=== PATIENT | male | born 1975 | race Caucasian/White ===

== ENCOUNTER 2020-04-28 11:40 | Outpatient (REF) | payer OTHER, SELFPAY ==
[2020-04-28 13:58] LABS: MANUAL DIFF FLAG NO
[2020-04-28 14:09] LABS: Basophils Percent Auto 0.6 % (0-2); Eosinophils Absolute Auto 0.2 X10*3/uL (0.0-0.4); Eosinophils Percent Auto 3.7 % (0-4); Hematocrit 45.6 % (42-52); Hemoglobin 15.4 g/dl (14.0-18.0); Imm Gran Abs Auto 0.01 X10*3/uL (0.00-0.03); Imm Gran Pct Auto 0.2 % (0.0-0.4); Lymphocytes Absolute Auto 1.3 X10*3/uL (1.2-4.9); Lymphocytes Percent Auto 25.8 % (20-40); Mean Corpuscular HGB Conc 33.8 g/dl (31.0-36.0); Mean Corpuscular Volume 100.7 fL (80-98); Mean Platelet Volume 10.6 fL (9.4-12.4); Monocytes Absolute Auto 0.7 X10*3/uL (0.1-1.2); Monocytes Percent Auto 14.1 % (2-11); Neutrophils Absolute Auto 2.7 X10*3/uL (2.0-8.3); Neutrophils Percent Auto 55.6 % (45-73); Platelet Count 203 X10*3/uL (160-400); Red Blood Count 4.53 X10*6/uL (4.60-5.80); Red Cell Distribution Width 11.9 % (11.0-16.0); White Blood Count 4.9 X10*3/uL (4.8-10.8)
[2020-04-28 14:32] LABS: Alanine Aminotransferase 37 U/L (0-40); Albumin Level 4.5 g/dL (3.5-5.0); Alkaline Phosphatase 93 U/L (39-117); Anion Gap 16 (12-20); Aspartate Amino Transferase 44 U/L (5-37); Bilirubin Total 0.9 mg/dL (0.0-1.0); Blood Urea Nitrogen 6 mg/dL (9-16); Calcium 9.2 mg/dL (8.4-10.2); Carbon Dioxide 27 mmol/L (22-29); Chloride 102 mmol/L (96-108); Cholesterol 176 mg/dL; Estimated Glomerular Filt Rate > 60; Glucose Fasting 103 mg/dL (60-99); HDL Cholesterol 86 mg/dL; LDL Cholesterol Calculated 72 mg/dl; Potassium 3.9 mmol/l (3.3-5.1); Sodium 141 mmol/L (135-145); Total Protein 7.7 g/dL (6.5-8.0); Triglycerides 94 mg/dL
[2020-04-28 14:51] LABS: Thyroid Stimulating Hormone 2.76 uIU/mL (0.32-4.0)
== END 2020-04-28 11:41 | disposition home or self-care (01) ==
LOC: HO.HMGCLDS 11:40
PROVIDERS: PCP Internal Medicine; Visit Provider Internal Medicine
DX: Z00.01 Encounter for general adult medical examination with abnormal findings (principal); F10.24 Alcohol dependence with alcohol-induced mood disorder; F12.288 Cannabis dependence with other cannabis-induced disorder; F32.9 Major depressive disorder, single episode, unspecified; F41.0 Panic disorder [episodic paroxysmal anxiety]
CPT/HCPCS: 36415; 80053; 80061; 84443; 85025

== ENCOUNTER 2021-01-01 18:36 | Emergency (ER) | payer OTHER, SELFPAY ==
[2021-01-01 20:04] VITALS: BP 167/88; PULSE 66; RESP 16; TEMP 36.1; O2SAT 98; BMI 20.9
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
[2021-01-01] MEDS: Ibuprofen 600 MG TABLET PO (22:11)
[2021-01-01] MEDS: Acetaminophen 325 MG TABLET 975 MG PO (22:12)
== END 2021-01-01 22:17 | disposition home or self-care (01) ==
PROVIDERS: Emergency Provider Emergency Medicine Emergency Medical Services
DX: S43.401A Unspecified sprain of right shoulder joint, initial encounter (principal); S13.9XXA Sprain of joints and ligaments of unspecified parts of neck, initial encounter; S23.9XXA Sprain of unspecified parts of thorax, initial encounter; M25.511 Pain in right shoulder; M54.2 Cervicalgia; M54.5 Low back pain; V43.52XA Car driver injured in collision with other type car in traffic accident, initial encounter; Y93.9 Activity, unspecified; Y92.410 Unspecified street and highway as the place of occurrence of the external cause; Y99.9 Unspecified external cause status; Z79.899 Other long term (current) drug therapy
CPT/HCPCS: 99283

== ENCOUNTER 2021-09-30 13:13 | Outpatient (REF) | payer OTHER, SELFPAY ==
[2021-09-30 13:32] LABS: MANUAL DIFF FLAG NO
[2021-09-30 13:46] LABS: Basophils Percent Auto 0.7 % (0-2); Eosinophils Absolute Auto 0.2 X10*3/uL (0.0-0.4); Eosinophils Percent Auto 3.2 % (0-4); Hematocrit 44.4 % (42.0-52.0); Hemoglobin 14.8 g/dl (14.0-18.0); Imm Gran Abs Auto 0.01 X10*3/uL (0.00-0.03); Imm Gran Pct Auto 0.2 % (0.0-0.4); Lymphocytes Absolute Auto 1.2 X10*3/uL (1.2-4.9); Lymphocytes Percent Auto 21.5 % (20-40); Mean Corpuscular HGB Conc 33.3 g/dl (31.0-36.0); Mean Corpuscular Volume 102.1 fL (80.0-98.0); Mean Platelet Volume 10.1 fL (9.4-12.4); Monocytes Absolute Auto 0.7 X10*3/uL (0.1-1.2); Monocytes Percent Auto 11.7 % (2-11); Neutrophils Absolute Auto 3.6 x10*3/uL (2.0-8.3); Neutrophils Percent Auto 62.7 % (45-73); Platelet Count 192 X10*3/uL (160-400); Red Blood Count 4.35 X10*6/uL (4.60-5.80); Red Cell Distribution Width 12.6 % (11.0-16.0); White Blood Count 5.7 X10*3/uL (4.8-10.8)
[2021-09-30 14:14] LABS: Alanine Aminotransferase 41 U/L (0-40); Alkaline Phosphatase 117 U/L (39-117); Anion Gap 13 (12-20); Aspartate Amino Transferase 66 U/L (5-37); Bilirubin Total 0.6 mg/dL (0.0-1.0); Blood Urea Nitrogen 9 mg/dL (9-16); Calcium 9.1 mg/dL (8.4-10.2); Carbon Dioxide 25 mmol/L (22-29); Chloride 103 mmol/L (96-108); Cholesterol 210 mg/dL; Estimated Glomerular Filt Rate > 60; Glucose Random 108 mg/dL (60-115); HDL Cholesterol 81 mg/dL; LDL Cholesterol Calculated 114 mg/dl; Potassium 4.1 mmol/L (3.3-5.1); Sodium 137 mmol/L (135-145); Total Protein 7.6 g/dL (6.5-8.0); Triglycerides 79 mg/dL
[2021-09-30 14:32] LABS: Thyroid Stimulating Hormone 1.48 uIU/mL (0.32-4.0)
== END 2021-09-30 13:14 | disposition home or self-care (01) ==
LOC: HO.LAB 13:13
PROVIDERS: PCP Internal Medicine; Visit Provider Internal Medicine
DX: F12.188 Cannabis abuse with other cannabis-induced disorder (principal); F17.211 Nicotine dependence, cigarettes, in remission; F32.A Depression, unspecified; F41.8 Other specified anxiety disorders
CPT/HCPCS: 36415; 80053; 80061; 84443; 85025

== ENCOUNTER 2024-06-17 15:39 | Outpatient (REF) | payer OTHER, SELFPAY ==
[2024-06-17 15:52] LABS: MANUAL DIFF FLAG NO
[2024-06-17 17:01] LABS: Basophils Percent Auto 0.6 % (0-2); Eosinophils Absolute Auto 0.2 X10*3/uL (0.0-0.4); Eosinophils Percent Auto 2.4 % (0-4); Hematocrit 45.3 % (42.0-52.0); Hemoglobin 15.3 g/dl (14.0-18.0); Imm Gran Abs Auto 0.02 X10*3/uL (0.00-0.03); Imm Gran Pct Auto 0.3 % (0.0-0.4); Lymphocytes Absolute Auto 1.4 X10*3/uL (1.2-4.9); Lymphocytes Percent Auto 20.6 % (20-40); Mean Corpuscular HGB Conc 33.8 g/dl (31.0-36.0); Mean Corpuscular Hemoglobin 35.2 pg (27.0-33.0); Mean Corpuscular Volume 104.1 fL (80.0-98.0); Mean Platelet Volume 10.7 fL (9.4-12.4); Monocytes Absolute Auto 0.6 X10*3/uL (0.1-1.2); Monocytes Percent Auto 9.6 % (2-11); Neutrophils Absolute Auto 4.4 x10*3/uL (2.0-8.3); Neutrophils Percent Auto 66.5 % (45-73); Platelet Count 239 X10*3/uL (160-400); Red Blood Count 4.35 X10*6/uL (4.60-5.80); Red Cell Distribution Width 12.6 % (11.0-16.0); White Blood Count 6.7 X10*3/uL (4.8-10.8)
[2024-06-17 17:32] LABS: Alanine Aminotransferase 38 U/L (0-40); Albumin Level 3.8 g/dL (3.5-5.0); Alkaline Phosphatase 93 U/L (39-117); Anion Gap 11 (12-20); Aspartate Amino Transferase 47 U/L (5-37); Bilirubin Total 0.5 mg/dL (0.0-1.0); Blood Urea Nitrogen 7 mg/dL (9-16); Calcium 8.8 mg/dL (8.4-10.2); Carbon Dioxide 27 mmol/L (22-29); Chloride 108 mmol/L (96-108); Cholesterol 164 mg/dL (<200); Estimated Glomerular Filt Rate > 60; Glucose Random 62 mg/dL (60-115); HDL Cholesterol 78 mg/dL (>40); LDL Cholesterol Calculated 70 mg/dL (<100); Potassium 4.2 mmol/L (3.3-5.1); Sodium 142 mmol/L (135-145); Total Protein 7.5 g/dL (6.5-8.0); Triglycerides 84 mg/dL (<150)
== END 2024-06-17 15:40 | disposition home or self-care (01) ==
LOC: HO.LAB 15:39
PROVIDERS: PCP Internal Medicine; Visit Provider Internal Medicine
DX: Z00.01 Encounter for general adult medical examination with abnormal findings (principal); F10.20 Alcohol dependence, uncomplicated; F12.988 Cannabis use, unspecified with other cannabis-induced disorder; F17.201 Nicotine dependence, unspecified, in remission; F31.4 Bipolar disorder, current episode depressed, severe, without psychotic features; G47.00 Insomnia, unspecified; R19.7 Diarrhea, unspecified
CPT/HCPCS: 36415; 80053; 80061; 85025

== ENCOUNTER 2024-07-01 11:18 | Emergency (ER) | payer OTHER, SELFPAY ==
--- NOTE | ~2024-07-01 | XR_ITS ---
EXAMINATION: XR CHEST CLINICAL INFORMATION: pain COMPARISON: The January 03, 2011 is not available on PACS. TECHNIQUE: Frontal view of the chest was obtained. FINDINGS: No pleural effusion or pneumothorax. Questionable patchy opacity distal to the right pulmonary hilum. Heart silhouette size is normal. 3 mm calcified pulmonary nodule versus cross-section of the pulmonary vessel, left upper lung lobe. Osseous structures are intact. XR/XR chest 1V IMPRESSION: Questionable acute airspace disease in the right middle lung lobe. Electronically signed by: Shine Hull MD 07/01/2024 12:18 PM EDT
--- NOTE | 2024-07-01 11:24 | ECG_ITS ---
Test Reason : chest pain Blood Pressure : */* mmHG Vent. Rate : 66 BPM Atrial Rate : 66 BPM P-R Int : 148 ms QRS Dur : 86 ms QT Int : 418 ms P-R-T Axes : 54 -7 55 degrees QTcB Int : 438 ms Normal sinus rhythm Normal ECG When compared with ECG of 15-Oct-2012 13:04, No significant changes seen Referred By: Batsheva De Leon Electronically Signed By: JOCELYN VARGAS MD
[2024-07-01 11:44] VITALS: BP 118/78; PULSE 62; RESP 16; TEMP 36.5; O2SAT 97; BMI 20.8
--- NOTE | 2024-07-01 11:44 | ED_ITS ---
HPI - General Adult General Chief complaint: Chest Pain Stated complaint: chest pain Related Data Previous Rx's ?Medication ?Instructions ?Recorded acetaminophen 500 mg tablet 1,000 mg (2 x 500 mg) PO Q4-6H PRN 01/01/21 (Tylenol Extra Strength) pain #30 tabs cyclobenzaprine 10 mg tablet 10 mg PO TID PRN pain, muscle 01/01/21 spasm #15 tabs ibuprofen 600 mg tablet 600 mg PO Q6H PRN pain #30 tabs 01/01/21 Allergies Allergy/AdvReac Type Severity Reaction Status Date / Time No Known Allergies Allergy Verified 07/01/24 11:46 [facility] Social History Social History Advance Directives: No Advance Directives Information Provided: No Physical Exam ED Vital Signs: BMI result Body Mass Index 20.8 Course Course Course Narrative: This is a rapid medical exam performed by Marcela Del Valle PA-C. The patient is a 49-year-old male who presents with left-sided chest pain with radiation to the axilla since this morning. We will be screening basic labs troponin lipase EKG chest x-ray. The patient was stable and can return to the waiting room pending his full medical assessment. Medical Decision Making Lab Data 07/01/24 12:13 07/01/24 12:13 Labs: Lab Results 07/01/24 Range/Units 12:13 WBC 5.2 (4.8-10.8) X10*3/uL RBC 4.30 L (4.60-5.80) X10*6/uL Hgb 15.1 (14.0-18.0) g/dl Hct 43.8 (42.0-52.0) % MCV 101.9 H (80.0-98.0) fL MCH 35.1 H (27.0-33.0) pg MCHC 34.5 (31.0-36.0) g/dl RDW 12.4 (11.0-16.0) % Plt Count 212 (160-400) X10*3/uL MPV 10.1 (9.4-12.4) fL Immature Gran % (Auto) 0.2 (0.0-0.4) % Neut % (Auto) 65.5 (45-73) % Lymph % (Auto) 22.4 (20-40) % Calloway % (Auto) 9.6 (2-11) % Eos % (Auto) 1.7 (0-4) % Baso % (Auto) 0.6 (0-2) % Lymph # (Auto) 1.2 (1.2-4.9) X10*3/uL Calloway # (Auto) 0.5 (0.1-1.2) X10*3/uL Eos # (Auto) 0.1 (0.0-0.4) X10*3/uL Baso # (Auto) 0.0 (0.0-0.2) X10*3/uL Abs Immat Gran (auto) 0.01 (0.00-0.03) X10*3/uL Absolute Neuts (auto) 3.4 (2.0-8.3) x10*3/uL Absolute Nucleated RBC 0.000 (0.0-0.012) X10*3/uL Nucleated RBC % (auto) 0.0 (0.0-0.2) /100WBC Sodium 139 (135-145) mmol/L Potassium 4.4 (3.3-5.1) mmol/L Chloride 107 (96-108) mmol/L Carbon Dioxide 26 (22-29) mmol/L Anion Gap 10 L (12-20) BUN 10 (9-16) mg/dL Creatinine 0.70 (0.5-1.4) mg/dL Estim Creat Clear Calc 124.7 Estimated GFR > 60 Random Glucose 129 H (60-115) mg/dL Calcium 8.9 (8.4-10.2) mg/dL Magnesium 2.1 (1.6-2.6) mg/dL Total Bilirubin 0.5 (0.0-1.0) mg/dL AST 36 (5-37) U/L ALT 22 (0-40) U/L Alkaline Phosphatase 79 (39-117) U/L Troponin I High Sens < 2.7 (<3.5-35.0) ng/L Total Protein 7.0 (6.5-8.0) g/dL Albumin 3.9 (3.5-5.0) g/dL Lipase 25 (8-78) U/L Discharge Plan Discharge Clinical Impression: Chest pain Patient Disposition: Left W/O Completing Treatment Prescriptions: No Action cyclobenzaprine 10 mg tablet 10 mg PO TID PRN (Reason: pain, muscle spasm) Qty: 15 0RF ibuprofen 600 mg tablet 600 mg PO Q6H PRN (Reason: pain) Qty: 30 0RF acetaminophen [Tylenol Extra Strength] 500 mg tablet 1,000 mg PO Q4-6H PRN (Reason: pain) Qty: 30 0RF Discharge Date/Time: 07/01/24 17:33
[2024-07-01 12:25] LABS: MANUAL DIFF FLAG NO
[2024-07-01 12:26] LABS: Basophils Percent Auto 0.6 % (0-2); Eosinophils Absolute Auto 0.1 X10*3/uL (0.0-0.4); Eosinophils Percent Auto 1.7 % (0-4); Hematocrit 43.8 % (42.0-52.0); Hemoglobin 15.1 g/dl (14.0-18.0); Imm Gran Abs Auto 0.01 X10*3/uL (0.00-0.03); Imm Gran Pct Auto 0.2 % (0.0-0.4); Lymphocytes Absolute Auto 1.2 X10*3/uL (1.2-4.9); Lymphocytes Percent Auto 22.4 % (20-40); Mean Corpuscular HGB Conc 34.5 g/dl (31.0-36.0); Mean Corpuscular Hemoglobin 35.1 pg (27.0-33.0); Mean Corpuscular Volume 101.9 fL (80.0-98.0); Mean Platelet Volume 10.1 fL (9.4-12.4); Monocytes Absolute Auto 0.5 X10*3/uL (0.1-1.2); Monocytes Percent Auto 9.6 % (2-11); Neutrophils Absolute Auto 3.4 x10*3/uL (2.0-8.3); Neutrophils Percent Auto 65.5 % (45-73); Platelet Count 212 X10*3/uL (160-400); Red Cell Distribution Width 12.4 % (11.0-16.0); White Blood Count 5.2 X10*3/uL (4.8-10.8)
[2024-07-01 12:49] LABS: Troponin-I High Sensitivity < 2.7 ng/L (<3.5-35.0)
[2024-07-01 12:52] LABS: Alanine Aminotransferase 22 U/L (0-40); Albumin Level 3.9 g/dL (3.5-5.0); Alkaline Phosphatase 79 U/L (39-117); Anion Gap 10 (12-20); Aspartate Amino Transferase 36 U/L (5-37); Bilirubin Total 0.5 mg/dL (0.0-1.0); Blood Urea Nitrogen 10 mg/dL (9-16); Calcium 8.9 mg/dL (8.4-10.2); Carbon Dioxide 26 mmol/L (22-29); Chloride 107 mmol/L (96-108); Creatinine Clr Calc Pharmacy 124.7; Estimated Glomerular Filt Rate > 60; Glucose Random 129 mg/dL (60-115); Lipase 25 U/L (8-78); Magnesium 2.1 mg/dL (1.6-2.6); Potassium 4.4 mmol/L (3.3-5.1); Sodium 139 mmol/L (135-145)
== END 2024-07-01 17:33 | disposition left against medical advice (07) ==
PROVIDERS: Physician Assistant Medical; Emergency Provider Emergency Medicine; PCP Internal Medicine
DX: R07.89 Other chest pain (principal); M79.622 Pain in left upper arm; Z79.899 Other long term (current) drug therapy
CPT/HCPCS: 36415; 71045; 80053; 83690; 83735; 84484; 85025; 93005; 99283

== ENCOUNTER → 2024-07-01 11:24 | Outpatient (BNV) | payer OTHER, SELFPAY | PROVIDERS: Emergency Provider Emergency Medicine; PCP Internal Medicine; Visit Provider Internal Medicine Cardiovascular Disease | DX: R07.9 Chest pain, unspecified (principal) | CPT/HCPCS: 93010 ==

== ENCOUNTER → 2024-07-01 11:43 | Outpatient (BNV) | payer OTHER, SELFPAY | PROVIDERS: PCP Internal Medicine; Visit Provider Radiology Diagnostic Radiology | DX: R07.9 Chest pain, unspecified (principal) | CPT/HCPCS: 71045 ==

== ENCOUNTER 2025-02-19 15:52 | Outpatient (REF) | payer OTHER, SELFPAY ==
--- OUTSIDE RECORDS SUMMARY | 2024-10-18 09:20 | XMS_ITS ---
Author Organization [facility] Address [address] [place] [id number] Care Team Providers Care Safety Coordinator Name Role Phone Nayely Ahn Primary Care Provider Unavailab Ladarius Eduardo [phone] REASON FOR VISIT Patient presents today for a colon screening Encounters Encounter Location Date Provider Diagnosis [facility] [address] [place] [id number] 10/18/2024 Ladarius Nelson Plan Of Treatment No Information Progress Notes * RHIANNON LAWSONOB:[birth year] (49 yo M)Acc No.[id number]:10/18/2024 Progress Notes Patient: BALA FLORIAN Provider: Bossman Nelson MD :1975 A ge:49 Y S ex:Male Date:10/18/2024 Address:[address] [place], [place] [id number] Pcp:Nayely Ahn Subjective: * Chief Complaints: * 1 . Patient presents today for a colon screening. * Medical History: Objective: * Vitals: Assessment: Plan: * Treatment: * * The named appointment provid er may or may not be the originator of this progress note, and it is not deemed complete until electronically signed by the appointment provider. Sign off status: Pending * Provider: Bossman Nelson MD Date: 0 10/18/2024 Generated for Yen zamora/Ronny/Elkin on: 04/21/2024 06:50 PM EST
[2025-02-19 16:02] LABS: MANUAL DIFF FLAG NO
[2025-02-19 16:36] LABS: Hematocrit 31.2 % (42.0-52.0); Hemoglobin 8.7 g/dl (14.0-18.0); Imm Gran Abs Auto 0.02 X10*3/uL (0.00-0.03); Imm Gran Pct Auto 0.3 % (0.0-0.4); Lymphocytes Absolute Auto 1.6 X10*3/uL (1.2-4.9); Mean Corpuscular HGB Conc 27.9 g/dl (31.0-36.0); Mean Corpuscular Hemoglobin 21.4 pg (27.0-33.0); Mean Corpuscular Volume 76.8 fL (80.0-98.0); NRBC Abs Auto 0.000 X10*3/uL (0.0-0.012); NRBC Pct Auto 0.0 /100WBC (0.0-0.2); Platelet Count 342 X10*3/uL (160-400); Red Blood Count 4.06 X10*6/uL (4.60-5.80); White Blood Count 7.5 X10*3/uL (4.8-10.8)
[2025-02-19 17:10] LABS: Alanine Aminotransferase 23 U/L (0-40); Albumin Level 4.7 g/dL (3.5-5.0); Alkaline Phosphatase 134 U/L (39-117); Anion Gap 15 (12-20); Aspartate Amino Transferase 44 U/L (5-37); Blood Urea Nitrogen 9 mg/dL (9-16); Calcium 9.4 mg/dL (8.4-10.2); Carbon Dioxide 22 mmol/L (22-29); Chloride 107 mmol/L (96-108); Estimated Glomerular Filt Rate > 60; Potassium 4.3 mmol/L (3.3-5.1); Sodium 140 mmol/L (135-145); Total Protein 8.4 g/dL (6.5-8.0)
[2025-02-19 17:27] LABS: Ferritin 20 ng/mL (20-250)
--- OUTSIDE RECORDS SUMMARY | 2025-02-19 18:50 | XMS_ITS | Patient Health Record ---
Author Organization [facility] Address [address] [place] [address] Care Team Providers Care Vascular Surgeon Name Role Phone Nayely Ahn Primary Care Provider Unavailab Ladarius Eduardo Unavailable [phone] Reason For Referral No Information Encounters Encounter Location Date Provider Diagnosis [facility] [address] [place] [phone] 10/18/2024 Ladarius Nelson Assessments Encounter Date Diagnosis (ICD Code) Assessment Notes Treatment Notes Treatment Clinical Notes Section Notes 10/18/2024 r Plan Of Treatment No Information Insurance Providers Payer Name Payer Address Payer Phone Subscriber Number Group Number Insured Name Patient Relationship to Insured Coverage Start Date Coverage End Date [facility] [address] [address] [place], [place] [id number] BALA LAWSON Self - patient is the insured
== END 2025-02-19 15:53 | disposition home or self-care (01) ==
LOC: HO.LAB 15:52
PROVIDERS: PCP Internal Medicine; Visit Provider Internal Medicine
DX: K29.21 Alcoholic gastritis with bleeding (principal); F10.24 Alcohol dependence with alcohol-induced mood disorder; F31.4 Bipolar disorder, current episode depressed, severe, without psychotic features; R42 Dizziness and giddiness
CPT/HCPCS: 36415; 80053; 82728; 85025